=== PATIENT | female | born 1990 | race Caucasian/White ===

== ENCOUNTER 2021-10-30 19:03 | Inpatient (IN) | payer OTHER, MEDICAID ==
[2021-10-30] MEDS ORDERED: MAG HYDROX/AL HYDROX/SIMETH 30 ML CUP PO PRN (22:25)
[2021-10-30] MEDS ORDERED: MAGNESIUM HYDROXIDE 2,400 MG/10 ML CUP PO PRN (22:25)
[2021-10-30] MEDS ORDERED: ACETAMINOPHEN TAB 325 MG TAB PO PRN (22:25)
[2021-10-30] MEDS ORDERED: traZODone HCL 50 MG TAB PO PRN (22:38)
[2021-10-31] MEDS: PRENATAL VIT-IRON-FOLIC ACID 1 EACH TABLET PO SCH (09:23)
[2021-10-31] MEDS ORDERED: haloperidoL 5 MG TAB PO PRN (12:04)
[2021-10-31] MEDS ORDERED: HALOPERIDOL LACTATE 5 MG/ML 1 ML VIAL IM PRN (12:04)
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
[2021-10-31 12:14] LABS: Basophils % (A) 0 %; Eosinophils # (A) 0.1 k/uL (0-0.7); Eosinophils % (A) 1 %; HCT 35.6 % (34.0-46.0); Lymphocytes # (A) 1.2 k/uL (1.0-4.8); Lymphocytes % (A) 15 %; MCH 31.7 pg (25.0-35.0); MCHC 33.6 g/dL (31.0-37.0); MCV 94.4 fL (80.0-100.0); Mean Platelet Volume 7.5; Monocytes # (A) 0.3 k/uL (0-1.0); Monocytes % (A) 4 %; Neutrophils # (A) 6.6 k/uL (1.3-7.7); Neutrophils % (A) 79 %; Platelet Count 293 k/uL (150-450); RBC 3.77 m/uL (3.80-5.40); RDW 12.7 % (11.5-15.5); WBC 8.3 k/uL (3.8-10.6)
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
[2021-10-31 12:26] LABS: ALT <6 U/L (4-34); AST 20 U/L (14-36); African American GFR (CKD) >90 (>60 ml/min/1.73 sqM); Albumin 3.6 g/dL (3.5-5.0); Alkaline Phosphatase 113 U/L (38-126); Anion Gap 7 mmol/L; Bilirubin,Unconjugated 0.3 mg/dL (0.0-1.1); Blood Urea Nitrogen 7 mg/dL (7-17); Calcium 9.5 mg/dL (8.4-10.2); Carbon Dioxide 25 mmol/L (22-30); Chloride 103 mmol/L (98-107); Glucose 82 mg/dL (74-99); Non-African American GFR(CKD) >90 (>60 ml/min/1.73 sqM); Potassium 4.6 mmol/L (3.5-5.1); Sodium 135 mmol/L (137-145); Total Bilirubin 0.3 mg/dL (0.2-1.3); Total Protein 6.6 g/dL (6.3-8.2)
[2021-10-31] MEDS: SERTRALINE 25 MG TAB PO SCH ×2 (15:22→17:35)
[2021-10-31 18:42] LABS: Chol/HDL Ratio 3.98 Ratio; LDL Cholesterol,Calculated 167.5 mg/dL (0.0-131.0)
[2021-10-31] MEDS ORDERED: MELATONIN 5 MG TABLET PO SCH (21:00)
[2021-11-01 06:37] VITALS: RESP 18
[2021-11-01] MEDS: SERTRALINE 25 MG TAB PO SCH (08:47)
[2021-11-01] MEDS: PRENATAL VIT-IRON-FOLIC ACID 1 EACH TABLET PO SCH (08:47)
--- NOTE | 2021-11-01 11:34 | P.PN ---
Progress Note - Text Progress Note Date: 11/01/21 Interval History: Patient was seen wandering the hallways and was directable and agreeable to sp eak with financial underwriter in the office. Patient appears to be calmer today when speaking with financial underwriter and less depressed. She states that her anxiety is mildly improved since yesterday. She claims that she did take the Zoloft yesterday and claims that she was manic and surgical side effects. We discussed side effects once again and the safety profile especially regards to her . Patient is far along in her and less likely to develop competitions of the due to the medication. Patient states that she's been seen by her DIE MECHANIC daily and also has been speaking with her about medications. She claims that she slept about 3 hours last night and claims that the melatonin did help. She claims that she is going to some groups and finding them helpful. Her appetite is fair. At this time patient denies any suicidal or homical ideations, intent or plan. Patient denies any auditory, visual hallucinations and denies any paranoia or delusions. Patient denies any side effects from the medications and has been compliant with meds. Mental Status Exam: General Appearance: Patient appears to be , stated age is alert, directable, and attempts to cooperate. less Guarded today. Patient appears to have fair hygiene and grooming. Behavior: Patient is seated without any agitated behavior. More cooperative today. Speech: Patient's speech is fluent and nonpressured. Mood/Affect: Patient reports their mood is improving mildly, affect is congruent and constricted. Suicidality/Homicidality: Patient denies having any homicidal ideation intent or plan. Denies any suicidal ideations intent or plan. Perceptions: Patient denies any visual hallucinations and denies any auditory hallucinations Though content/process: There is no evidence of any delusional thought content and thought process is linear and goal-directed.] less guarded today Memory and concentration: AOX3, grossly intact for the purposes of this session Judgment and insight: Improving IMPRESSIONS: Major depressive disorder, recurrent, severe without psychotic features Plan: -Patient continues to meet criteria for inpatient psychiatric admission for symptom stabilization and safety. Patient has not signed adult voluntary form and medication consent and was placed in patient's chart. -Medications: Continue with Zoloft 25 mg daily for mood/anxiety, increased melatonin to 10 mg daily at bedtime for sleep. -When necessary Ativan and Haldol for agitation/aggression. -appreciate CRO follow up. -NRT - not needed as patient does not smoke. -SW on board for discharge planning. Encouraged the patient to participate in milieu. Currently awaiting deferral with defense attorney and court date. likely discharge early next week once she defers.
--- NOTE | 2021-11-01 12:49 | P.PN ---
Progress Note - Text Progress Note Date: 11/01/21 31-year-old G 2 P1 at 34 weeks gestation admitted to mental health for suicidal ideation and depression and anxiety. She started taking Zoloft 25 mg yesterday. I agree with this medication in , it has a very low risk profile. I spoke with the patient about taking this medication and she is agreeable to this. I then learned she was taking melatonin for sleep. This is not a very good choice for . I would prefer she be given Ambien which is a category B. There've been studies with melatonin and that showed melatonin does cross the placenta readily and binds to receptors on the fetus. Haldol would be okay for agitation but Ativan is not. Vital signs are stable and NST is reactive with a 135 baseline moderate variability and category 1 heart tones. Abdomen is soft nontender and gravid Assessment 1. 31-year-old at 34 weeks gestation 2. Depression and anxiety with suicidal ideation Plan 1. I discontinued the melatonin 2. Continue Zoloft 3. Will follow 4. NST daily
[2021-11-01] MEDS ORDERED: ZOLPIDEM 5 MG TAB PO PRN (12:52)
[2021-11-01] MEDS ORDERED: diphenhydrAMINE 25 MG CAP PO PRN (14:53)
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
[2021-11-01] MEDS ORDERED: MELATONIN 5 MG TABLET PO SCH (21:00)
[2021-11-02] MEDS: PRENATAL VIT-IRON-FOLIC ACID 1 EACH TABLET PO SCH (08:36)
[2021-11-02] MEDS: SERTRALINE 25 MG TAB PO SCH (08:37)
--- NOTE | 2021-11-02 09:38 | P.PN ---
Progress Note - Text Progress Note Date: 11/02/21 31-year-old G 2 P1 at 34 1/7 weeks gestation admitted to mental health for suicidal ideation and depression and anxiety. She started taking Zoloft 25 mg. Pt seems to be in good spirits today. taking her medication and sleeping better. She got to speak to her son today and her boss is coming for a visit. Good movement, no lof or vaginal bleeding. Vital signs are stable . Abdomen is soft nontender and gravid Assessment 1. 31-year-old at 34 1/7weeks gestation 2. Depression and anxiety with suicidal ideation-improved Plan 1. i will continue to follow and continue daily NSTs until patient is discharged.
--- NOTE | 2021-11-02 15:35 | P.PN ---
Progress Note - Text Progress Note Date: 11/02/21 Subjective: Patient was seen today as a cross coverage for Dr. Covarrubias. The patient was evaluated, chart reviewed, case discussed with the treatment team. Patient reports interrupted sleep last night, and appetite was reported as " Great". Patient has been going to groups and other unit activities. The patient is compliant with her medications and denies any adverse reactions. Mood is "better" and optimistic, denies any feeling hopeless or suicidal. Denies any hallucinations, manic symptoms, delusions or paranoia Objective: Vitals has been reviewed. Mental status examination; General Appearance: Patient appears to be , stated age is alert. Patient appears to have fair hygiene and grooming. Behavior: Patient is seated without any agitated behavior. More cooperative today. Speech: Patient's speech is fluent and non pressured. Mood/Affect: Patient reports fair mood, Affect is congruent and constricted. Suicidality/Homicidality: Patient denies having any homicidal ideation intent or plan. Denies any suicidal ideation intent or plan. Perceptions: Patient denies any visual hallucinations and denies any auditory hallucinations Though content/process: There is no evidence of any delusional thought content and thought process is linear and goal-directed. Memory and concentration: AOX3, grossly intact for the purposes of this session Judgment and insight: Improving Assessment: Major depressive disorder, recurrent, severe without psychotic features Plan: Continue inpatient level of care due to [] Precautions: Continue 15 minutes check for safety. Consider medical consultation if any acute medical issues arise. Provide the patient individual, group therapy, substance use disorder counseling to give better insight and learn coping skills. Medications: Zoloft 25 mg daily for mood/anxiety, [id number] mg daily at bedtime for sleep. When necessary Ativan and Haldol for agitation/aggression. Patient was seen by OBGYN because she is 34-week . Continue non-psychiatric medications for medical conditions as recommended by the medical team. Discharge patient to OUTPATIENT services upon a stabilization
--- NOTE | 2021-11-02 15:44 | P.PN ---
Progress Note - Text Progress Note Date: 11/02/21 Subjective: Patient was seen today as a cross coverage for Dr. Radford. The patient was evaluated, chart reviewed, case discussed with the treatment team. Patient reports "great" sleep last night, and appetite was reported as " good". Patient has been going to groups and other unit activities. The patient is compliant with his medications and denies any adverse reactions. Patient was talkative, with tangential thought process. He reported improvement of his mood and denies irritability, mood swings, anger or agitation. Denies feeling depressed, hopeless or suicidal. He feels sad about not at home. Denies hallucinations, delusions or PI. Patient agreed to take Invega Sustenna injection. The injection ordered to be administered today. Objective: Vitals has been reviewed. Mental status examination; General Appearance: Patient appears to be stated age is alert, and cooperative. Behavior: Patient displays elevated psychomotor activity. Normal gait. Speech: Patient's speech is rapid but not pressured. Mood/Affect: Mood "Good", affect is congruent and expansive. Suicidality/Homicidality: Patient denies any suicidal or homicidal ideation. Perceptions: Patient denies any visual hallucinations and denies any auditory hallucinations Though content/process: There is no evidence of any delusional thought content and thought process is linear and goal-directed. Flight of ideas. Memory and concentration: AOX3, grossly intact for the purposes of this session Judgment and insight: Improving mildly Assessment: Bipolar 1 disorder, manic episode Cannabis use disorder Tobacco use disorder Plan: Continue inpatient level of care due to need for further monitoring and stabilization Precautions: Continue 15 minutes check for safety. Consider medical consultation if any acute medical issues arise. Provide the patient individual, group therapy, substance use disorder counseling to give better insight and learn coping skills. Medications: Continue Risperdal 2 mg by mouth twice a day for mood stabilization Continue Depakote to 500 mg by mouth every morning and 750 mg by mouth daily at bedtime for mood stabilization. Patient showed stability of mood and no need to increase the dose. The plan is to administer Invega Sustenna 234 mg IM today due to the patient's history of non adherence to treatment. Patient refused injection yesterday, but today he stated that will take the injection. Re-ordered today When necessary Thorazine and Ativan for agitation/aggression. NRT -Nicorette gum Continue non-psychiatric medications for medical conditions as recommended by the medical team. Discharge patient to OUTPATIENT services upon a stabilization
[2021-11-03 06:56] VITALS: TEMP 98.2
[2021-11-03] MEDS: PRENATAL VIT-IRON-FOLIC ACID 1 EACH TABLET PO SCH (08:44)
[2021-11-03] MEDS: SERTRALINE 25 MG TAB PO SCH (08:44)
--- NOTE | 2021-11-03 15:32 | P.PN ---
Progress Note - Text Progress Note Date: 11/03/21 Subjective: Patient was seen today as a cross coverage for Dr. Covarrubias. The patient was evaluated, chart reviewed, case discussed with the treatment team. Patient reported stability of her mood and he denied any depression symptoms, feeling hopeless, or suicidal ideation. She reported his sleep is much better last night without melatonin and he denied any appetite problems. Patient denied any hallucinations, paranoid ideation, delusions, or manic symptoms. She reported that she is waiting for the it teacher tomorrow to complete the deferral and hoping to go home soon. Patient continued to take her psychiatric medications as prescribed and denied side effects. She continued to attend groups and other unit activities. Objective: Vitals has been reviewed. Mental status examination; General Appearance: Patient appears to be , stated age is alert. Patient appears to have fair hygiene and grooming. Behavior: Patient is seated without any agitated behavior. More cooperative today. Speech: Patient's speech is fluent and non pressured. Mood/Affect: Patient reports fair mood, Affect is congruent and constricted. Suicidal/Homicidal ideation: Patient denies having any homicidal ideation intent or plan. Denies any suicidal ideation intent or plan. Perceptions: Patient denies any visual hallucinations and denies any auditory hallucinations Though content/process: There is no evidence of any delusional thought content and thought process is linear and goal-directed. Memory and concentration: AOX3, grossly intact for the purposes of this session Judgment and insight: Improving Assessment: Major depressive disorder, recurrent, severe without psychotic features Plan: Continue inpatient level of care due to patient needs further monitoring and stabilization Precautions: Continue 15 minutes check for safety. Consider medical consultation if any acute medical issues arise. Provide the patient individual, group therapy, substance use disorder counseling to give better insight and learn coping skills. Medications: Zoloft 25 mg daily for mood/anxiety, [id number] mg daily at bedtime for sleep. When necessary Ativan and Haldol for agitation/aggression. Patient was seen by OBGYN because she is 34-week . Continue non-psychiatric medications for medical conditions as recommended by the medical team. Discharge patient to OUTPATIENT services upon a stabilization
[2021-11-04 07:09] VITALS: BP 116/57; PULSE 80
[2021-11-04] MEDS: PRENATAL VIT-IRON-FOLIC ACID 1 EACH TABLET PO SCH (09:02)
[2021-11-04] MEDS: SERTRALINE 25 MG TAB PO SCH (09:02)
--- NOTE | 2021-11-04 10:09 | P.DS ---
Providers Date of admission: 10/30/21 19:14 Expected date of discharge: 11/04/21 Attending physician: Deejay Covarrubias MD Consults: 10/30/21 22:25 Consult Physician Routine Consulting Provider: Alta Jamison Consult Reason/Comments: Medical H&P Do you want consulting provider notified?: Yes 10/30/21 23:54 Consult Physician Routine Consulting Provider: Melinda Colorado Consult Reason/Comments: 8 months Do you want consulting provider notified?: Yes, Notify in am Primary care physician: Physician Nonstaff - Discharge Diagnosis(es) (1) Major depressive disorder, recurrent severe without psychotic features Current Visit: Yes Status: Acute Priority: High Hospital Course: Admission HPI: Admission note was completed by health underwriter "Patient is a 31-year-old female who is currently , works at a gas station, lives in a trailer with her son, single. Patient presented to the hospital yesterday as a transfer from [facility]. The patient apparently patient was transferred due to depression and having suicidal thoughts. Patient was on a petition and certificate the petition stated the patient was depressed and went to a overpass and was about to jump over in an attempt to kill herself. Patient was seen today in agreeable to speak to health underwriter. Patient was minimizing her depressive symptoms and also being hospital. She appeared to have fairly poor insight and judgment. She did claim that she has been going through a lot and endorses being overwhelmed. She claims that she had "a series of bad days" including argument with her boyfriend which lasted several days. She claims that she stopped by an overpass golds[place] apprentice [place] and thought about jumping. She claims that a man stopped and called her boyfriend and then also called the ballet company member. She claims that she has been dealing with multiple stressors including broken down truck, finances, problems with her son and feeling unloved and also feeling "defeated" she also claims that she does have some guilt. Claims that her appetite is fair, sleep is poor approximately 3-4 hours. Patient denies any current suicidal or homicidal ideations intent or plan. At this time patient denies any auditory or visual hallucinations. Patient denies any flight of ideas racing thoughts and increased in goal directed behavior. Patient admits to using no recreational drugs or cigarettes." Hospital course: Upon admission to the unit patient was admitted involuntarily on a petition and certificate and a second certificate was completed and faxed with the courts. Patient ended up signing a deferral with the attorney law clerk and agreeing to treatment. Patient got along well with other patients on the unit and followed unit protocol. Patient was compliant with the medications and denied any side effects throughout hospital course. Patient was started on Zoloft 25 mg daily for mood/anxiety. Patient was seen by her MEDICAL REFERRAL COORDINATOR as she is currently and expecting baby in 6 weeks. Patient spoke of her stressors and engaged in therapy both group and individual. Patient was also seen by medical team for history and physical exam. Throughout the course of the hospitalization patient gradually improved with regards to mood, anxiety, sleep and became more future oriented with improved insight and judgment. On the day of discharge patient denied any suicidal or homicidal ideations intent or plan denied any auditory or visual hallucinations. Patient endorsed wanting to live for her children and her future. The patient denied any access to guns or weapons. Patient denied any paranoia and did not endorse any delusions. Patient does not have a significant history of substance abuse and was counseled on abstaining from all substances including alcohol and marijuana. Patient was also counseled on the medications and need for regular compliance and was encouraged to follow-up with their outpatient appointment for mental health and also for primary care. Prior to discharge a family meeting will be arranged by social and political studies professor to answer any questions and ensure safety upon discharge. Mental status exam: General Appearance: Patient appears to be stated age is alert, pleasant, and cooperative. Patient is in no acute distress and has improved hygiene and groom ing Behavior: Patient is calmly seated without any agitated behavior. Speech: Patient's speech is fluent and nonpressured. Mood/Affect: Patient reports their mood is "good", affect is congruent and euthymic. Suicidality/Homicidality: Patient denies having any suicidal or homicidal ideation intent or plan. Perceptions: Patient denies any auditory or visual hallucinations. Though content/process: There is no evidence of any delusional thought content and thought process is linear and goal-directed. more future oriented Memory and concentration: AOX3, grossly intact for the purposes of this session. Can spell "WORLD" backwards correctly. Judgment and insight: improved with guarded prognosis Impression: Major depressive disorder, recurrent, severe without psychotic features Plan: -Continue with discharge today as patient has improved and stabilized psychiatrically and is not currently an imminent threat to herself and/or others. Patient will remain at chronically elevated risk for harm to self and/or others due to her impulsivity. -Continue medications: Zoloft 25 mg daily for mood/anxiety. -Patient was counseled on the need for medication compliance and appropriate follow-up at mental health and also primary care for medical issues. Patient verbalized understanding and agreed. -Social work to arrange for and conduct family meeting to ensure safety upon discharge and answer any questions/concerns. Social work also to arrange for patients follow up appointments for psychiatric care along with follow up with primary care provider. -Patient counseled on abstaining from recreational drugs and marijuana and alcohol. Was informed/educated on the adverse effects on their physical and mental health. Patient verbally agreed and understood. -Patient was instructed to return to the hospital or seek immediate medical care if their psychiatric or medical symptoms do worsen or reoccur. Allergies Allergy/AdvReac Type Severity Reaction Status Date / Time No Known Allergies Allergy Verified 10/30/21 22:18 Laboratory Results WBC 8.3 k/uL (3.8-10.6) 10/31/21 11:35 RBC 3.77 m/uL (3.80-5.40) L 10/31/21 11:35 Hgb 12.0 gm/dL (11.4-16.0) 10/31/21 11:35 Hct 35.6 % (34.0-46.0) 10/31/21 11:35 MCV 94.4 fL (80.0-100.0) 10/31/21 11:35 MCH 31.7 pg (25.0-35.0) 10/31/21 11:35 MCHC 33.6 g/dL (31.0-37.0) 10/31/21 11:35 RDW 12.7 % (11.5-15.5) 10/31/21 11:35 Plt Count 293 k/uL (150-450) 10/31/21 11:35 MPV 7.5 10/31/21 11:35 Neutrophils % 79 % 10/31/21 11:35 Lymphocytes % 15 % 10/31/21 11:35 Monocytes % 4 % 10/31/21 11:35 Eosinophils % 1 % 10/31/21 11:35 Basophils % 0 % 10/31/21 11:35 Neutrophils # 6.6 k/uL (1.3-7.7) 10/31/21 11:35 Lymphocytes # 1.2 k/uL (1.0-4.8) 10/31/21 11:35 Monocytes # 0.3 k/uL (0-1.0) 10/31/21 11:35 Eosinophils # 0.1 k/uL (0-0.7) 10/31/21 11:35 Basophils # 0.0 k/uL (0-0.2) 10/31/21 11:35 Sodium 135 mmol/L (137-145) L 10/31/21 11:35 Potassium 4.6 mmol/L (3.5-5.1) 10/31/21 11:35 Chloride 103 mmol/L (98-107) 10/31/21 11:35 Carbon Dioxide 25 mmol/L (22-30) 10/31/21 11:35 Anion Gap 7 mmol/L 10/31/21 11:35 BUN 7 mg/dL (7-17) 10/31/21 11:35 Creatinine 0.60 mg/dL (0.52-1.04) 10/31/21 11:35 Est GFR (CKD-EPI)AfAm >90 (>60 ml/min/1.73 sqM) 10/31/21 11:35 Est GFR (CKD-EPI)NonAf >90 (>60 ml/min/1.73 sqM) 10/31/21 11:35 Glucose 82 mg/dL (74-99) 10/31/21 11:[address] Glu mg/dL 91 10/31/21 11:35 Hemoglobin A1c 4.8 % (0.0-6.0) 10/31/21 11:35 Calcium 9.5 mg/dL (8.4-10.2) 10/31/21 11:35 Total Bilirubin 0.3 mg/dL (0.2-1.3) 10/31/21 11:35 Conjugated Bilirubin 0.0 mg/dL (0.0-0.3) 10/31/21 11:35 Unconjugated Bilirubin 0.3 mg/dL (0.0-1.1) 10/31/21 11:35 Delta Bilirubin 0.0 mg/dL (0.0-0.2) 10/31/21 11:35 AST 20 U/L (14-36) 10/31/21 11:35 ALT <6 U/L (4-34) 10/31/21 11:35 Alkaline Phosphatase 113 U/L (38-126) 10/31/21 11:35 Total Protein 6.6 g/dL (6.3-8.2) 10/31/21 11:35 Albumin 3.6 g/dL (3.5-5.0) 10/31/21 11:35 Triglycerides 233.00 mg/dL (0.00-149.00) H 10/31/21 11:35 Cholesterol 286.00 mg/dL (0.00-200.00) H 10/31/21 11:35 LDL Cholesterol, Calc 167.5 mg/dL (0.0-131.0) H 10/31/21 11:35 VLDL Cholesterol, Calc 46.60 mg/dL (5.00-40.00) H 10/31/21 11:35 HDL Cholesterol 71.90 mg/dL (40.00-60.00) H 10/31/21 11:35 Cholesterol/HDL Ratio 3.98 Ratio 10/31/21 11:35 TSH 2.430 mIU/L (0.465-4.680) 10/31/21 11:35 Vital Signs Temp 98.2 F 11/04/21 07:09 Pulse 80 11/04/21 07:09 Resp 18 11/01/21 06:37 BP 116/57 11/04/21 07:09 Pulse Ox 98 11/04/21 07:09 FiO2 Intake & Output 11/03/21 11/04/21 11/04/21 18:59 06:59 18:59 Weight 65.3 kg Patient Condition at Discharge: Stable Plan - Discharge Summary New Discharge Prescriptions: New diphenhydrAMINE [Benadryl] 25 mg PO HS PRN 14 Days cap PRN Reason: Insomnia Sertraline [Zoloft] 25 mg PO DAILY 30 Days tab Discharge Medication List Sertraline [Zoloft] 25 mg PO DAILY 30 Days tab 11/04/21 [Rx] diphenhydrAMINE [Benadryl] 25 mg PO HS PRN 14 Days cap 06/27/22 [Rx] Discharge Disposition: HOME SELF-CARE
== END 2021-11-04 12:15 | disposition home or self-care (01) | DRG 885 ==
LOC: 3MHU 19:14
PROVIDERS: ADMIT Psychiatry & Neurology Psychiatry; ATTEND Psychiatry & Neurology Psychiatry
DX: F33.2 Major depressive disorder, recurrent severe without psychotic features (principal); O99.323 Drug use complicating pregnancy, third trimester; R45.851 Suicidal ideations; F12.90 Cannabis use, unspecified, uncomplicated; F31.9 Bipolar disorder, unspecified; F41.9 Anxiety disorder, unspecified; O99.343 Other mental disorders complicating pregnancy, third trimester; Z3A.34 34 weeks gestation of pregnancy; Z72.0 Tobacco use; Z79.899 Other long term (current) drug therapy
CPT/HCPCS: 80053; 80061; 82248; 83036; 84443; 85025

== ENCOUNTER 2021-12-06 06:15 | Inpatient (IN) | payer OTHER ==
[2021-12-06] MEDS ORDERED: METHYLERGONOVINE 0.2 MG/ML 1 ML AMP IM PRN (06:37)
[2021-12-06] MEDS ORDERED: CARBOPROST TROMETHAMINE 250 MCG/ML 1 ML AMP IM PRN (06:37)
[2021-12-06] MEDS ORDERED: OXYTOCIN 10 UNIT/ML 1 ML VIAL IM PRN (06:37)
[2021-12-06] MEDS ORDERED: TERBUTALINE 1 MG/ML VIAL SQ PRN (06:37)
[2021-12-06] MEDS ORDERED: LIDOCAINE 0.5% (PF) 5 MG/ML (50 ML SDV) SQ PRN (06:37)
[2021-12-06] MEDS ORDERED: OXYTOCIN 30 UNITS/500 ML NS 30 UNIT in SALINE 1 500ML.BAG IV SCH (06:45)
[2021-12-06] MEDS: LACTATED RINGERS 1,000 ML IV SCH ×2 (07:10→14:57)
[2021-12-06 07:16] LABS: Basophils % (A) 1 %; Eosinophils # (A) 0.1 k/uL (0-0.7); Eosinophils % (A) 2 %; HCT 38.6 % (34.0-46.0); HGB 12.8 gm/dL (11.4-16.0); Lymphocytes # (A) 1.4 k/uL (1.0-4.8); Lymphocytes % (A) 19 %; MCH 30.8 pg (25.0-35.0); MCHC 33.3 g/dL (31.0-37.0); MCV 92.5 fL (80.0-100.0); Mean Platelet Volume 8.2; Monocytes # (A) 0.3 k/uL (0-1.0); Monocytes % (A) 4 %; Neutrophils # (A) 5.6 k/uL (1.3-7.7); Neutrophils % (A) 74 %; Platelet Count 284 k/uL (150-450); RBC 4.17 m/uL (3.80-5.40); WBC 7.6 k/uL (3.8-10.6)
[2021-12-06] MEDS ORDERED: ROPIVACAINE 100 MG, fentaNYL (PF). 200 MCG in SODIUM CHLORIDE 0.9% 76 ML EPIDURAL ONE (10:01)
[2021-12-06] MEDS ORDERED: diphenhydrAMINE 50 MG CAP PO PRN (10:07)
[2021-12-06] MEDS ORDERED: SIMETHICONE 80 MG CHEWABLE PO PRN (10:07)
[2021-12-06] MEDS ORDERED: LANOLIN CREAM 5 GM TUBE TOPICAL PRN (10:07)
[2021-12-06] MEDS ORDERED: BENZOCAINE/MENTHOL SPRAY 1 GM/SPRAY AEROSOL TOPICAL PRN (10:07)
[2021-12-06] MEDS ORDERED: ZOLPIDEM 5 MG TAB PO PRN (10:07)
[2021-12-06] MEDS ORDERED: diphenhydrAMINE 50 MG/ML 1 ML VIAL IVP PRN ×2 (10:07)
[2021-12-06] MEDS ORDERED: diphenhydrAMINE 25 MG CAP PO PRN (10:07)
[2021-12-06] MEDS ORDERED: HYDROCORTISONE 2.5% RECTAL CREAM 30 GM TUBE RECTAL PRN (10:07)
--- NOTE | 2021-12-06 12:45 | P.HPOB ---
History of Present Illness H&P Date: 12/06/21 Chief Complaint: Induction of labor 31-year-old presents at 39 weeks for induction of labor. Her cervix is 37 m dilated, 70% effaced, -2 station. She is betzy irregularly. heart tones are 135 with moderate variability and reactive. Review of Systems All systems: negative Constitutional: Denies chills, Denies fever Eyes: denies blurred vision, denies pain Ears, nose, mouth and throat: Denies headache, Denies sore throat Cardiovascular: Denies chest pain, Denies shortness of breath Respiratory: Denies cough Gastrointestinal: Denies abdominal pain, Denies diarrhea, Denies nausea, Denies vomiting Genitourinary: Denies dysuria, Denies hematuria Musculoskeletal: Denies myalgias Integumentary: Denies pruritus, Denies rash Neurological: Denies numbness, Denies weakness Psychiatric: Denies anxiety, Denies depression Endocrine: Denies fatigue, Denies weight change Past Medical History Past Medical History: Asthma Additional Past Medical History / Comment(s): Surgical history: First was a vaginal delivery. This is her second . She's had care with me since around 30 weeks gestation. Her blood type is O-, advised negative, rubella immune, hepatitis B negative, HIV nonreactive, GBS negative. She was hospitalized during this for depression and suicidal ideation was placed on Zoloft 25 mg. History of Any Multi-Drug Resistant Organisms: None Reported Past Surgical History: No Surgical Hx Reported Past Anesthesia/Blood Transfusion Reactions: No Reported Reaction Past Psychological History: Depression Smoking Status: Never smoker Past Drug Use History: None Reported Medications and Allergies Home Medications Medication Instructions Recorded Confirmed Type Sertraline [Zoloft] 25 mg PO DAILY 30 Days tab 11/04/21 12/06/21 Rx Allergies Allergy/AdvReac Type Severity Reaction Status Date / Time No Known Allergies Allergy Verified 12/06/21 06:35 Exam Osteopathic Statement: *. No significant issues noted on an osteopathic structural exam other than those noted in the History and Physical/Consult. Vital Signs Temp Pulse Resp BP Pulse Ox 12/06/21 12:05 67 16 124/56 12/06/21 11:35 75 16 121/58 12/06/21 11:05 66 16 120/58 12/06/21 10:50 66 16 106/55 12/06/21 10:35 71 15 103/55 12/06/21 10:20 75 16 115/57 12/06/21 10:05 96.4 F L 75 16 118/56 12/06/21 06:35 96.7 F L 66 16 130/66 98 Intake and Output 12/05/21 12/06/21 12/06/21 22:59 06:59 14:59 Intake Total 171.933 Output Total 325 Balance -153.067 Intake: Intake, IV Titration 171.933 Amount Oxytocin 30 Units/500 ml 171.933 Ns 30 unit In Saline 1 500ml.bag @ Per Protocol IV .Q0M HAILEE Rx#:[id number] Output: Estimated Blood Loss 150 Output, Quantitative 175 Blood Loss Other: # Voids 1 Weight 71.668 kg Heart: Regular rate and rhythm Lungs: Clear to auscultation bilaterally Abdomen: Soft, nontender Extremities: Negative Homans sign Results Result Diagrams: 12/06/21 06:59 Assessment and Plan (1) Elective induction of labor planned Current Visit: Yes Status: Acute Code(s): [id number] - SNOMED Code(s): 736232925 Plan: 1. Induction of labor with amniotomy and Pitocin 2. Anticipate normal vaginal delivery.
[2021-12-06] MEDS ORDERED: Rhogam IMMUNE GLOBULIN 1,500 UNIT/1 ML IM ONE (12:46)
--- NOTE | 2021-12-06 12:46 | P.PROBDLV ---
Vaginal Delivery Note - . Vaginal Delivery Note: 31-year-old presents at 39 weeks for induction of labor. Her cervix is 3 cm dilated, 70% effaced, -2 station. She is betzy irregularly. heart tones are 135 with moderate variability and reactive. Pitocin augmentation was started and amniotomy performed at 7:15 AM clear fluid noted. She was quickly uncomfortable and got an epidural. Cervix is completely dilated 9:48 AM. She pushed, delivered a viable female infant over intact perineum under epidural anesthesia at 9:55 AM. Head delivered OA, anterior shoulder delivered gentle downward guidance followed by posterior shoulder and rest of body. Nose and mouth bulb suctioned, cord clamped and cut, infant placed on mother's abdomen. Apgars 9, 9, weight 6 pounds 8.8 ounces. Placenta delivered spontaneously, intact with three-vessel cord at 9:58 AM. Vagina, cervix, perineum inspected. No lacerations noted. Estimated blood loss 175 mL. Mother and baby in stable condition.
[2021-12-06] MEDS: SENNOSIDES-DOCUSATE SODIUM 1 EACH TAB PO SCH (20:34)
[2021-12-07 05:38] LABS: Basophils % (A) 0 %; Eosinophils # (A) 0.1 k/uL (0-0.7); Eosinophils % (A) 1 %; HGB 11.5 gm/dL (11.4-16.0); Lymphocytes # (A) 1.7 k/uL (1.0-4.8); Lymphocytes % (A) 17 %; MCH 31.9 pg (25.0-35.0); MCHC 33.8 g/dL (31.0-37.0); MCV 94.2 fL (80.0-100.0); Monocytes # (A) 0.3 k/uL (0-1.0); Monocytes % (A) 3 %; Neutrophils # (A) 7.9 k/uL (1.3-7.7); Neutrophils % (A) 77 %; Platelet Count 244 k/uL (150-450); RBC 3.61 m/uL (3.80-5.40); RDW 13.5 % (11.5-15.5); WBC 10.2 k/uL (3.8-10.6)
[2021-12-07] MEDS: SENNOSIDES-DOCUSATE SODIUM 1 EACH TAB PO SCH ×2 (09:41→21:33)
[2021-12-07] MEDS: IBUPROFEN 600 MG TAB PO PRN ×2 (09:52→20:11)
--- NOTE | 2021-12-07 11:19 | P.PNOBGVD ---
Subjective - Subjective Principal diagnosis: Status post vaginal delivery day #1 Interval history: Patient is doing well. She is breast-feeding. Lochia is decreasing. Her pain is fairly well controlled with ibuprofen. Baby does need to go on a bili light. Patient reports: Reports appetite normal, Reports voiding normally, Reports pain well controlled, Reports ambulating normally : doing well, nursing well Objective - Latest Vital Signs Latest vital signs: Vital Signs Temp Pulse Resp BP Pulse Ox 12/07/21 08:00 97.8 F 67 17 132/72 98 12/07/21 04:00 98.5 F 66 15 122/71 98 12/07/21 00:00 98.0 F 64 15 123/75 100 12/06/21 20:00 98.0 F 65 16 133/82 100 12/06/21 16:00 98.3 F 77 16 120/78 99 12/06/21 12:05 67 16 124/56 12/06/21 11:35 75 16 121/58 Intake and Output 12/06/21 12/07/21 12/07/21 22:59 06:59 14:59 Intake Total 240 Balance 240 Intake: Oral 240 Other: # Voids 2 1 - Exam Extremities: Present: normal. Absent: tenderness, edema Abdomen: Present: normal appearance, soft. Absent: distention, tenderness Uterus: Present: normal, firm. Absent: tenderness - Labs Labs: Abnormal Lab Results - Last 24 Hours (Table) 12/07/21 Range/Units 05:10 RBC 3.61 L (3.80-5.40) m/uL Neutrophils # 7.9 H (1.3-7.7) k/uL Assessment and Plan Assessment: Status post vaginal delivery day #1 Plan: Continue with care today. Anticipate discharge home tomorrow.
[2021-12-08] MEDS: IBUPROFEN 600 MG TAB PO PRN (05:24)
[2021-12-08 08:55] VITALS: BP 116/78; RESP 16
--- NOTE | 2021-12-08 10:29 | P.DS ---
Providers Date of admission: 12/06/21 06:18 Expected date of discharge: 12/08/21 Attending physician: Melinda Colorado Primary care physician: Stated None Hospital Course: This is a 31-year-old female 2 para 1 at 39-0/7 weeks who presented for induction of labor. She delivered vaginally a viable female infant on 12/06/2021 with scores of 9 at 1 minute and 9 at 5 minutes and infant weight of 6 pounds 8.8 ounces. Her course has been uncomplicated. Lochia is decreasing. Pain is fairly well controlled. She is breast-feeding. Baby did have to go on a BiliBlanket but is doing well now. Vital signs are stable. Abdomen is soft with fundus firm and nontender. Extremities show negative Homans. Impression is status post vaginal delivery day #2. Plan is to discharge home today. Routine instructions are given. She is advised follow-up with Dr. Colorado in the office in 6 weeks. She is advised to call the office if she has any further questions or concerns prior to her appointment time. She will be given a prescription for ibuprofen. Procedures: Oxytocin induction of labor Spontaneous vaginal delivery of a viable female infant on 12/06/2021 Patient Condition at Discharge: Stable Plan - Discharge Summary Discharge Rx Participant: Yes New Discharge Prescriptions: New Ibuprofen [Motrin] 600 mg PO Q6HR PRN #60 tab PRN Reason: Mild Pain (Scale 1 To 3) No Action Sertraline [Zoloft] 25 mg PO DAILY 30 Days tab Discharge Medication List Sertraline [Zoloft] 25 mg PO DAILY 30 Days tab 11/04/21 [Rx] Ibuprofen [Motrin] 600 mg PO Q6HR PRN #60 tab 12/08/21 [Rx] Follow up Appointment(s)/Referral(s): Melinda Colorado DO [Doctor of Osteopathic Medicine] - 01/17/22 11:00 am Activity/Diet/Wound Care/Special Instructions: Instructions 1. Do not begin any exercise program for 3 weeks. 2. Do not resume sexual relations for 3 weeks or longer if uncomfortable. 3. You may take tub baths or showers at any time. 4. You may use tampons if desired after 3 weeks. 5. Keep the area of episiotomy (stitches) clean and dry. 6. If you are not nursing, wear a good fitting, supportive bra during the day and limit fluid intake for at least 1 week to prevent breast engorgement. 7. Call the office, [phone], within the next week to make appointment for your 6 week checkup if it has not already been made. 8. Report any of the following occurrences to the doctor promptly: a. Heavy, excessive bleeding b. Chills, fever c. Burning or frequency of urination d. Pain or redness and breasts if nursing e. Increasing pain or swelling in episiotomy (stitches). In addition to the above instructions, the following additional should be foll owed: 1. No heavy lifting or straining (exercising) until after 6 week checkup. 2. Keep abdominal incision clean and dry: You may wear a dressing if more comfortable. 3. Make office appointment for 10 days after going home or as instructed by her doctor. Discharge Disposition: HOME SELF-CARE
[2021-12-08 15:21] VITALS: PULSE 72; TEMP 98.5
== END 2021-12-08 15:30 | disposition home or self-care (01) | DRG 807 ==
LOC: 4FBP 06:18
PROVIDERS: ADMIT Obstetrics & Gynecology; ATTEND Obstetrics & Gynecology
PROC: 00HU33Z Insertion of Infusion Device into Spinal Canal, Percutaneous Approach (ICD-10-PCS; principal; 2021-12-06)
PROC: 10E0XZZ Delivery of Products of Conception, External Approach (ICD-10-PCS; principal; 2021-12-06)
PROC: 10907ZC Drainage of Amniotic Fluid, Therapeutic from Products of Conception, Via Natural or Artificial Opening (ICD-10-PCS; principal; 2021-12-06)
PROC: 3E033VJ Introduction of Other Hormone into Peripheral Vein, Percutaneous Approach (ICD-10-PCS; principal; 2021-12-06)
PROC: 3E0234Z Introduction of Serum, Toxoid and Vaccine into Muscle, Percutaneous Approach (ICD-10-PCS; principal; 2021-12-06)
PROC: 3E0R3NZ Introduction of Analgesics, Hypnotics, Sedatives into Spinal Canal, Percutaneous Approach (ICD-10-PCS; principal; 2021-12-06)
DX: O26.893 Other specified pregnancy related conditions, third trimester (principal); Z37.0 Single live birth; Z67.41 Type O blood, Rh negative; O99.52 Diseases of the respiratory system complicating childbirth; J45.909 Unspecified asthma, uncomplicated; O99.344 Other mental disorders complicating childbirth; F32.A Depression, unspecified; Z3A.39 39 weeks gestation of pregnancy; Z79.899 Other long term (current) drug therapy; Z91.51 Personal history of suicidal behavior; Z28.310 Unvaccinated for COVID-19
CPT/HCPCS: 85025; 85461; 86850; 86900; 86901; 88307